=== PATIENT | male | born 1990 ===

== ENCOUNTER 2019-05-29 12:39 | Emergency (ER) | payer SELFPAY ==
--- NOTE | 2019-05-29 13:16 | Event Note ---
ED Screening Note Date of service: 05/29/19 Time: 13:12 ED Screening Note: 29 y/o male comes in for sorethroat muffle voice difficulties in swallowing. Uvla deviated This initial assessment/diagnostic orders/clinical plan/treatment(s) is/are subject to change based on patients health status, clinical progression and re- assessment by fellow clinical providers in the ED. Further treatment and workup at subsequent clinical providers discretion. Patient/guardian urged not to elope from the ED as their condition may be serious if not clinically assessed and managed. Initial orders include:
[2019-05-29 13:34] LABS: Hematocrit 40.5 % (35.5-45.6); Hemoglobin 13.9 gm/dl (11.8-15.2); Mean Corpuscular HGB Conc 34 % (32-34); Mean Corpuscular Volume 96 fl (84-94); Platelet Count 241 K/mm3 (140-440); Red Blood Count 4.21 M/mm3 (3.65-5.03); Red Cell Distribution Width 13.1 % (13.2-15.2)
[2019-05-29 14:00] LABS: Alanine Aminotransferase 21 units/L (7-56); BUN/Creatinine Ratio 9; Blood Urea Nitrogen 9 mg/dL (9-20); Calcium 9.9 mg/dL (8.4-10.2); Hemolysis Index 20
[2019-05-29] MEDS ORDERED: NACL 0.9% 1000 ML 1,000 ML IV ONE (14:26)
[2019-05-29] MEDS ORDERED: DECADRON IV ONE (14:26)
[2019-05-29] MEDS ORDERED: MORPHINE IV ONE (14:27)
[2019-05-29] MEDS ORDERED: ZOFRAN IV ONE (14:27)
[2019-05-29] MEDS ORDERED: CLEOCIN 900 MG/50 mL 900 MG/50 ML BAG IV ONE (14:27)
[2019-05-29] MEDS ORDERED: MORPHINE ONE (14:42)
--- NOTE | 2019-05-29 15:45 | Emergency Department Report ---
<CHASIDY SINGH - Last Filed: 05/29/19 18:12> ED ENT HPI - General Chief complaint: Sore Throat Stated complaint: ROSELINE Time Seen by Provider: 05/29/19 14:27 Source: patient Mode of arrival: Ambulatory Limitations: No Limitations - History of Present Illness Initial comments: Patient is a 29-year-old male presents to the emergency room with complaints of a sore throat that began 2 weeks ago. He states he has pain with swallowing. He states initially he was unable to tolerate his secretions but is now able to with discomfort. He states he has not been able to eat due to the discomfort. He states he had this before about 15 years ago and had to have a needle used to drain the peritonsillar abscess. He does not report any other symptoms. He denies any sick contacts. He denies any allergies to medications. - Related Data Previous Rx's Medication Instructions Recorded Last Taken Type Clindamycin [Clindamycin CAP] 450 mg PO TID 7 Days #63 capsule 05/29/19 Unknown Rx Allergies Allergy/AdvReac Type Severity Reaction Status Date / Time No Known Allergies Allergy Verified 05/29/19 13:14 ED Dental HPI - General Chief complaint: Sore Throat Stated complaint: ROSELINE Time Seen by Provider: 05/29/19 14:27 Source: patient Mode of arrival: Ambulatory Limitations: No Limitations - Related Data Previous Rx's Medication Instructions Recorded Last Taken Type Clindamycin [Clindamycin CAP] 450 mg PO TID 7 Days #63 capsule 05/29/19 Unknown Rx Allergies Allergy/AdvReac Type Severity Reaction Status Date / Time No Known Allergies Allergy Verified 05/29/19 13:14 ED Review of Systems Comment: All other systems reviewed and negative ED Past Medical Hx - Past Medical History Previous Medical History?: No - Surgical History Past Surgical History?: No - Social History Smoking Status: Current Every Day Smoker Substance Use Type: None - Medications Home Medications: Home Medications Medication Instructions Recorded Confirmed Last Taken Type Clindamycin [Clindamycin CAP] 450 mg PO TID 7 Days #63 capsule 05/29/19 Unknown Rx ED Physical Exam - General Limitations: No Limitations General appearance: alert, in no apparent distress - Head Head exam: Present: atraumatic, normocephalic - Eye Eye exam: Present: normal appearance, PERRL - ENT ENT exam: Present: mucous membranes moist, other (left sided peritonsillar swelling with deviation of uvula, no exudates present, no deviation of the tongue, no submental tenderness ) - Respiratory Respiratory exam: Present: normal lung sounds bilaterally. Absent: respiratory distress, wheezes, rales, rhonchi, stridor, chest wall tenderness, accessory muscle use, decreased breath sounds, prolonged expiratory - Cardiovascular Cardiovascular Exam: Present: regular rate, normal rhythm, normal heart sounds. Absent: systolic murmur, diastolic murmur, rubs, gallop - Neurological Exam Neurological exam: Present: alert, oriented X3 - Psychiatric Psychiatric exam: Present: normal affect, normal mood - Skin Skin exam: Present: warm, dry, intact ED Medical Decision Making - Lab Data Result diagrams: 05/29/19 13:20 05/29/19 13:20 Lab Results 05/29/19 05/29/19 Range/Units 13:20 13:20 WBC 18.2 H (4.5-11.0) K/mm3 RBC 4.21 (3.65-5.03) M/mm3 Hgb 13.9 (11.8-15.2) gm/dl Hct 40.5 (35.5-45.6) % MCV 96 H (84-94) fl MCH 33 H (28-32) pg MCHC 34 (32-34) % RDW 13.1 L (13.2-15.2) % Plt Count 241 (140-440) K/mm3 Sodium 139 (137-145) mmol/L Potassium 4.4 (3.6-5.0) mmol/L Chloride 100.0 (98-107) mmol/L Carbon Dioxide 25 (22-30) mmol/L Anion Gap 18 mmol/L BUN 9 (9-20) mg/dL Creatinine 1.0 (0.8-1.5) mg/dL Estimated GFR > 60 ml/min BUN/Creatinine Ratio 9 % Glucose 112 H (75-100) mg/dL Calcium 9.9 (8.4-10.2) mg/dL Total Bilirubin 0.60 (0.1-1.2) mg/dL AST 16 (5-40) units/L ALT 21 (7-56) units/L Alkaline Phosphatase 80 (35-129) units/L Total Protein 8.0 (6.3-8.2) g/dL Albumin 4.0 (3.9-5) g/dL Albumin/Globulin Ratio 1.0 % - Radiology Data Radiology results: report reviewed cc: WAYNE CEDEÑO CT NECK WITH INTRAVENOUS CONTRAST AND MULTIPLANAR RECONSTRUCTION CLINICAL HISTORY: Difficulty swallowing of 2 weeks' duration. Left-sided neck pain and swelling. TECHNIQUE: 2.5 mm thick contiguous axial scans were obtained from the skull base down to the aortic arch during intravenous contrast administration. In addition to evaluation of axial source images sagittal and coronal multiplanar reconstructions were produced and reviewed for this report. FINDINGS: This abnormal study is remarkable for the presence of a left-sided tonsillar abscess low attenuation material is present in the region of the left tonsil. This measures about 1.7 x 1.7 x 3.0 cm in overall dimension. This is associated with mass effect with compression of the oral pharyngeal airway which is displaced towards the right. Careful clinical correlation with regard to the adequacy of the patient's airway is advised. The soft palate appears swollen perhaps secondary to inflammation or related to the adjacent peritonsillar abscess. Hypopharynx, larynx and visualized portions of the subglottic airway all have an unremarkable appearance. Enlarged level II lymph nodes are demonstrated bilaterally. On the left there is a 1.8 x 1.3 x 3.5 cm lymph node in the jugulodigastric region. These are likely reactive, inflammatory lymph nodes. Smaller normal-sized cervical lymph nodes are identified elsewhere. No abnormalities are seen in evaluation of the oral cavity and tongue. The floor the mouth has a normal appearance. The parotid and submandibular salivary glands have a normal appearance. Evaluation of the nasal cavity reveals no abnormality. The paranasal sinuses are free from inflammatory mucosal disease. Evaluation of the orbits a reveals no abnormality. The thyroid gland is normal in size and homogeneous in attenuation. No focal thyroid lesions are identified. Evaluation of the cervical spine reveals no abnormality. Normal alignment is maintained. No significant degenerative changes are identified. Evaluation of the lung apices reveals no abnormality. There is no indication of lung nodule or infiltrate. The visualized portions of the superior mediastinum have an unremarkable appearance. Enhancement of normal vascular structures is demonstrated. No areas of abnormal contrast enhancement are identified. IMPRESSION: 1. There is a left-sided tonsillar abscess associated with mass effect and narrowing of the oropharyngeal airway. 2. Correlation with clinical adequacy of the patient's airway is advised. 3. Reactive lymphadenopathy. All CT imaging studies performed at this facility utilize dose modulation, iterative reconstruction or weight based dosing, if appropriate, to obtain the lowest achievable radiation dose. Signer Name: Levi Roberson MD Signed: 05/29/2019 5:38 PM Workstation Name: [id number] Transcribed By: Dictated By: Levi Roberson MD Electronically Authenticated By: Levi Roberson MD Signed Date/Time: 05/29/19 9367 - Medical Decision Making Patient is a 29-year-old male presents to the emergency room with complaints of a sore throat that began 2 weeks ago. He states he has pain with swallowing. He states initially he was unable to tolerate his secretions but is now able to with discomfort. He states he has not been able to eat due to the discomfort. He states he had this before about 15 years ago and had to have a needle used to drain the peritonsillar abscess. He does not report any other symptoms. He denies any sick contacts. He denies any allergies to medications. VSS. on exam: left sided peritonsillar swelling with deviation of uvula, no exudates present, no deviation of the tongue, no submental tenderness, breath sounds are clear. pt given IVF, morphine, zofran, clindamycin, dexamethsone while in the ED. states the swelling sensation in his throat has improved. labs show leukocytosis at 18, 000.CT neck shows 1. There is a left-sided tonsillar abscess associated with mass effect and narrowing of the oropharyngeal airway. 2. Correlation with clinical adequacy of the patient's airway is advised. 3. Reactive lymphadenopathy. spoke with Dr. Guille Tavarez regarding pts examination and CT report and discussed if pt needed transfer to another hospital with ENT speciality, Dr. Guille Tavarez examined pt at bedside and assessed airway which was patent, stated to give pt clindamycin prescription and have pt follow up with ENT, advised pt that if symptoms not resolving then to immediately be seen in a ER preferably with ENT, pt agrees with plan and verbalizes understanding. - Differential Diagnosis pharyngitis, strep throat, peritonsillar abscess, ludwigs ED Disposition Clinical Impression: Peritonsillar abscess Disposition: - TO HOME OR SELFCARE Is pt being admited?: No Does the pt Need Aspirin: No Condition: Stable Instructions: Peritonsillar Abscess (ED) Additional Instructions: Please take medication as prescribed to completion. please follow-up with an ENT doctor in the next 2-3 days. Return to the emergency room immediately for any new or worsening symptoms or if symptoms are not improving including but not limited to difficulty swallowing, difficulty breathing, increased swelling in the throat, increasing fever, or any other symptoms. Prescriptions: Clindamycin [Clindamycin CAP] 450 mg PO TID 7 Days #63 capsule Ref[facility]: [facility] JAILYN [Primary Care Provider] - 2-3 Days BAY VALENTIN MD [Staff Physician] - 2-3 Days NADIYA PAVON MD [Staff Physician] - 2-3 Days Time of Disposition: 18:02 Print Language: FRISIAN <EVAN TAVAREZ - Last Filed: 05/29/19 18:55> ED Review of Systems ROS: Stated complaint: ROSELINE Other details as noted in HPI ED Course Vital Signs 05/29/19 05/29/19 05/29/19 12:49 15:07 18:18 Temperature 98.3 F 98.4 F Pulse Rate 101 H 80 Respiratory 11 L 18 16 Rate Blood Pressure 130/80 121/67 [Right] O2 Sat by Pulse 98 98 Oximetry ED Medical Decision Making - Lab Data Result diagrams: 05/29/19 13:20 05/29/19 13:20 - Medical Decision Making I reevaluated Mr. Porras. He has normal voice. No trismus. Small peritonsillar abscess noted with minimal deviation of the uvula on the left side. His symptoms improved with IV steroids and IV antibiotics. Due to lack of airway compromise, I did not feel that emergent transfer for ENT evaluation was necessary. He understands that a trial of antibiotics may or may not improve symptom. He was referred to ear nose and throat surgeon. He understands return precautions, difficulty swallowing, shortness of breath. Mr. Porras has had sore throat symptoms for 2 weeks. 15 years ago he had drainage of peritonsillar abscess. Critical care attestation.: If time is entered above; I have spent that time in minutes in the direct care of this critically ill patient, excluding procedure time. ED Disposition Is pt being admited?: No Does the pt Need Aspirin: No
--- NOTE | 2019-05-29 17:42 | Cat Scan Report ---
CT NECK WITH INTRAVENOUS CONTRAST AND MULTIPLANAR RECONSTRUCTION CLINICAL HISTORY: Difficulty swallowing of 2 weeks' duration. Left-sided neck pain and swelling. TECHNIQUE: 2.5 mm thick contiguous axial scans were obtained from the skull base down to the aortic arch during intravenous contrast administration. In addition to evaluation of axial source images sagittal and co isha multiplanar reconstructions were produced and reviewed for this report. FINDINGS: This abnormal study is remarkable for the presence of a left-sided tonsillar abscess low attenuation material is present in the region of the left tonsil. This measures about 1.7 x 1.7 x 3.0 cm in overa ll dimension. This is associated with mass effect with compression of the oral pharyngeal airway whic h is displaced towards the right. Careful clinical correlation with regard to the adequacy of the pat ient's airway is advised. The soft palate appears swollen perhaps secondary to inflammation or relate d to the adjacent peritonsillar abscess. Hypopharynx, larynx and visualized portions of the subglottic airway all have an unremarkable appeara nce. Enlarged level II lymph nodes are demonstrated bilaterally. On the left there is a 1.8 x 1.3 x 3.5 cm lymph node in the jugulodigastric region. These are likely reactive, inflammatory lymph nodes. Small er normal-sized cervical lymph nodes are identified elsewhere. No abnormalities are seen in evaluation of the oral cavity and tongue. The floor the mouth has a norm al appearance. The parotid and submandibular salivary glands have a normal appearance. Evaluation of the nasal cavity reveals no abnormality. The paranasal sinuses are free from inflammato ry mucosal disease. Evaluation of the orbits a reveals no abnormality. The thyroid gland is normal in size and homogeneous in attenuation. No focal thyroid lesions are iden tified. Evaluation of the cervical spine reveals no abnormality. Normal alignment is maintained. No significa nt degenerative changes are identified. Evaluation of the lung apices reveals no abnormality. There is no indication of lung nodule or infilt rate. The visualized portions of the superior mediastinum have an unremarkable appearance. Enhancement of normal vascular structures is demonstrated. No areas of abnormal contrast enhancement are identified. IMPRESSION: 1. There is a left-sided tonsillar abscess associated with mass effect and narrowing of the oropharyn geal airway. 2. Correlation with clinical adequacy of the patient's airway is advised. 3. Reactive lymphadenopathy. All CT imaging studies performed at this facility utilize dose modulation, iterative reconstruction o r weight based dosing, if appropriate, to obtain the lowest achievable radiation dose. Signer Name: Levi Roberson MD Signed: 05/29/2019 5:38 PM Workstation Name: [id number]
[2019-05-29 18:19] VITALS: BP 121/67
[2019-05-29 20:12] LABS: Anisocytosis 1+; Basophils % (Manual) 0 % (0.0-1.8); Eosinophils % (Manual) 0 % (0.0-4.3); Platelet Estimate Consistent w Auto; Total Cells Counted 100
== END 2019-05-29 18:19 | disposition home or self-care (01) ==
LOC: ED 12:39
DX: J36 Peritonsillar abscess (principal); F17.200 Nicotine dependence, unspecified, uncomplicated
CPT/HCPCS: 36415; 70491; 80053; 85007; 85025; 96365; 96375; 99284; J1100; J2270; J2405; J7030; Q9967